=== PATIENT | male | born 1985 | race Hispanic/Latino ===

== ENCOUNTER 2016-09-25 10:25 | Emergency (ER) | payer MEDICAID, OTHER ==
[2016-09-25 10:29] VITALS: BMI 26.6
--- NOTE | 2016-09-25 10:47 | ED PDOC ---
HPI: General Adult Time Seen by Provider: 09/25/16 10:43 Chief Complaint (Nursing): GI Problem History Per: Patient History/Exam Limitations: no limitations Additional Complaint(s): 31yo male with 3 days of body aches, chills, sweats, fever 102*F, weakness, abdominal pain. States at onset there was vomit and diarrhea but this resolved after first day. Past Medical History Reviewed: Historical Data, Nursing Documentation, Vital Signs Vital Signs: Last Vital Signs Temp 98.4 F 09/25/16 12:49 Pulse 100 H 09/25/16 10:27 Resp BP 128/78 09/25/16 10:27 Pulse Ox 99 09/25/16 10:53 - Medical History PMH: Anxiety, Depression Denies: Diabetes, Hepatitis, HIV, HTN, Seizures, Sexually Transmitted Disease - Surgical History Surgical History: No Surg Hx - Family History Family History: States: Unknown Family Hx - Immunization History Hx Tetanus Toxoid Vaccination: Yes (2014) Hx Influenza Vaccination: No Hx Pneumococcal Vaccination: No - Home Medications Home Medications: Ambulatory Orders Medication Instructions Recorded Dicyclomine [Bentyl] 20 mg PO BID PRN #30 tab 12/21/15 Omeprazole Magnesium [Prilosec Otc] 20 mg PO DAILY #30 tcp 12/21/15 Ondansetron [Zofran] 4 mg PO Q8H PRN #30 tab 12/21/15 Dicyclomine [Dicyclomine HCl] 10 mg PO Q8 #10 cap 09/25/16 Mupirocin 2% Ointment [Bactroban 1 appl TP BID #1 tube 09/25/16 Ointment] - Allergies Allergies/Adverse Reactions: Allergies Allergy/AdvReac Type Severity Reaction Status Date / Time No Known Allergies Allergy Verified 04/27/16 20:03 Review of Systems ROS Statement: Except As Marked, All Systems Reviewed And Found Negative Constitutional: Positive for: Fever, Chills, Sweats, Weakness Gastrointestinal: Positive for: Vomiting, Abdominal Pain, Diarrhea Physical Exam - Reviewed Nursing Documentation Reviewed: Yes Vital Signs Reviewed: Yes - Physical Exam Appears: Positive for: Non-toxic, No Acute Distress Head Exam: Positive for: ATRAUMATIC, NORMAL INSPECTION, NORMOCEPHALIC Skin: Positive for: Warm, Dry Eye Exam: Positive for: EOMI, PERRL Cardiovascular/Chest: Positive for: Regular Rate, Rhythm Respiratory: Positive for: Normal Breath Sounds. Negative for: Rales, Rhonchi, Wheezing Gastrointestinal/Abdominal: Positive for: Soft, Tenderness (tenderness bilateral lower quadrants). Negative for: Guarding, Rebound Extremity: Positive for: Normal ROM Neurologic/Psych: Positive for: Alert, Oriented - Laboratory Results Result Diagrams: 09/25/16 11:11 09/25/16 11:11 - ECG O2 Sat by Pulse Oximetry: 99 (RA) Pulse Ox Interpretation: Normal - Progress Re-evaluation Time: 16:21 Condition: Improved (Hungry, tolerating PO, urinating) Medical Decision Making Medical Decision Makin: CT abd/pel w/, labs, blood culture ordered. Disposition - Clinical Impression Clinical Impression: Gastroenteritis - Patient ED Disposition Is Patient to be Admitted: No - Disposition [facility]errals: [facility] [Outside] Disposition: Routine/Home Disposition Time: 16:22 Condition: FAIR Prescriptions: Dicyclomine [Dicyclomine HCl] 10 mg PO Q8 #10 cap Mupirocin 2% Ointment [Bactroban Ointment] 1 appl TP BID #1 tube Instructions: Gastroenteritis (ED) Additional Comments - Additional Comments Additional Comments: Scribe Attestation: Documented by Troy Christian acting as a scribe for Arie Merino MD. Provider Attestation: All medical record entries made by the Scribe were at my direction and personally dictated by me. I have reviewed the chart and agree that the record accurately reflects my personal performance of the history, physical exam, medical decision making, and the department course for this patient. I have also personally directed, reviewed, and agree with the discharge instructions and disposition.
[2016-09-25] MEDS ORDERED: Iohexol 240 (50 ml) PO ONE (10:49)
[2016-09-25] MEDS ORDERED: Sodium Chloride 0.9% 1,000 ML IV STA (10:49)
[2016-09-25] MEDS ORDERED: Iohexol 240 (50 ml) ONE (10:52)
[2016-09-25 11:23] LABS: ALB/GLOB RATIO 1.2 (1.0-2.1); ALKALINE PHOSPHATASE 68 U/L (38-126); ALT/SGPT 33 U/L (21-72); AST/SGOT 24 U/L (17-59); BILIRUBIN,TOTAL 1.3 mg/dl (0.2-1.3); BLOOD UREA NITROGEN 15 mg/dl (9-20); CALCIUM 9.6 mg/dL (8.4-10.2); CARBON DIOXIDE 24 mmol/L (22-30); CHLORIDE 104 mmol/L (98-107); GFR AFRICAN-AMERICAN > 60; GLUCOSE,RANDOM 93 mg/dL (75-110); POTASSIUM 3.9 MMOL/L (3.6-5.0); SODIUM 141 mmol/l (132-148); TOTAL PROTEIN 8.9 G/DL (6.3-8.2)
[2016-09-25 11:43] LABS: BASO % 0.1 % (0.0-2.0); EOS % 0.2 % (0.0-4.0); LYMPH # 0.7 K/uL (1.0-4.3); LYMPH % 5.9 % (20.0-40.0); MEAN CELL VOLUME 87.8 fl (80.0-94.0); MEAN CORPUSCULAR HEMOGLOBIN 30.4 pg (27.0-31.0); MEAN CORPUSCULAR HGB CONC 34.7 g/dL (33.0-37.0); MEAN PLATELET VOLUME 7.8 fl (7.2-11.7); MONO # 0.8 K/uL (0.0-0.8); MONO % 6.6 % (0.0-10.0); NEUT # 10.1 K/uL (1.8-7.0); NEUT % 87.2 % (50.0-75.0); PLATELET COUNT 162 K/uL (130-400); RED CELL DISTRIBUTION WIDTH 13.2 % (11.5-14.5); WHITE BLOOD COUNT 11.6 K/uL (4.8-10.8)
[2016-09-25 12:48] LABS: EOSINOPHIL 1 % (0-7); NEUTROPHIL 87 % (42-75); TOTAL CELLS COUNTED 100
[2016-09-25 12:51] LABS: LARGE PLATELETS PRESENT
[2016-09-25] MEDS ORDERED: Iohexol 300 100 ML IJ ONE (13:31)
[2016-09-25] MEDS ORDERED: Sodium Chloride 0.9% 50 ML IV ONE (13:31)
--- NOTE | 2016-09-25 14:23 | CT ---
PROCEDURE: CT Abdomen and Pelvis with oral and IV contrast. HISTORY: abd pain COMPARISON: None available TECHNIQUE: Contiguous axial images of the abdomen and pelvis. Oral and IV contrast was administered. Coronal and Sagittal reformats generated and reviewed. Contrast dose: 95 cc Omnipaque 300 Radiation dose: Total exam DLP = 503.25 mGy-cm. This CT exam was performed using one or more of the following dose reduction techniques: Automated exposure control, adjustment of the mA and/or kV according to patient size, and/or use of iterative reconstruction technique. FINDINGS: LOWER THORAX: No visible consolidation, pleural effusion, or pneumothorax. LIVER: 14 mm hypodense lesion appears cystic in the right inferior hepatic lobe measuring approximately 10 HU. GALLBLADDER AND BILE DUCTS: Unremarkable. PANCREAS: Unremarkable. SPLEEN: Borderline splenomegaly. ADRENALS: Unremarkable. KIDNEYS AND URETERS: The kidneys enhance symmetrically. No hydronephrosis or obstructing renal calculus. BLADDER: The urinary bladder appears unremarkable. REPRODUCTIVE: The prostate gland measures approximately 3.5 x 4.6 cm. APPENDIX: Limited visualization of the appendix appears within normal limits of caliber. No secondary signs of acute appendicitis. BOWEL: The stomach is nondistended. The bowel loops appear within normal limits of caliber without evidence of intestinal obstruction. PERITONEUM: No significant free fluid. No definite free air. LYMPH NODES: Sub cm bilateral inguinal lymph nodes, nonspecific. No bulky lymphadenopathy identified. VASCULATURE: No aortic aneurysm. BONES: No acute osseous abnormality is detected. OTHER FINDINGS: None. IMPRESSION: Borderline splenomegaly. 14 mm hypodense lesion appears cystic in the right inferior hepatic lobe measuring approximately 10 HU.
[2016-09-25 16:33] VITALS: BP 110/66; PULSE 66; RESP 16; TEMP 98.1; O2SAT 96
== END 2016-09-25 16:31 | disposition home or self-care (01) ==
LOC: H.ER 10:25
DX: K52.9 Noninfective gastroenteritis and colitis, unspecified (principal); R50.9 Fever, unspecified; R11.10 Vomiting, unspecified; R53.1 Weakness